=== PATIENT | female | born 1985 | race Hispanic/Latino ===

== ENCOUNTER 2021-10-04 13:38 | Emergency (ER) | payer SELFPAY ==
[~2021-10-04] VITALS: Ht 157.5 cm; Wt 73.9 kg
[2021-10-04] MEDS ORDERED: VYVANSE30 MG (14:08)
[2021-10-04] MEDS ORDERED: ONDANSETRON HCL INJ 2MG/ML 2ML 2 MG/ML VIAL IV STA (14:20)
[2021-10-04] MEDS ORDERED: FAMOTIDINE 20 MG/2 ML VIAL IV STA (14:21)
[2021-10-04] MEDS ORDERED: SODIUM CHLORIDE 0.9% 1000ML 1,000 ML IV SCH (14:30)
[2021-10-04] MEDS ORDERED: IOPAMIDOL 370 MG/ML 100 ML INFUS..BTL INJ ONE (15:05)
[2021-10-04] MEDS ORDERED: DICYCLOMINE HCL 10 MG CAP ONE (16:13)
[2021-10-04] MEDS ORDERED: DICYCLOMINE HCL 20 MG TAB PO ONE (16:15)
[2021-10-04] MEDS ORDERED: DICYCLOMINE HCL20 MG PO (16:23)
[2021-10-04] MEDS ORDERED: ONDANSETRON ODT4 MG PO (16:25)
[2021-10-04] MEDS ORDERED: AZITHROMYCIN250 MG PO (16:26)
== END 2021-10-04 15:30 | disposition home or self-care (01) ==
LOC: FSED 14:15
DX: J20.8 Acute bronchitis due to other specified organisms (principal); I88.0 Nonspecific mesenteric lymphadenitis; D64.9 Anemia, unspecified; F90.9 Attention-deficit hyperactivity disorder, unspecified type; K86.2 Cyst of pancreas; N92.0 Excessive and frequent menstruation with regular cycle; F17.200 Nicotine dependence, unspecified, uncomplicated; Z71.6 Tobacco abuse counseling; Z20.822 Contact with and (suspected) exposure to COVID-19; Z88.8 Allergy status to other drugs, medicaments and biological substances; Z79.899 Other long term (current) drug therapy
CPT/HCPCS: 71046; 74177; 80048; 80076; 81003; 81025; 82553; 83518; 84484; 85025; 87400; 93005; 99284; J2405; J7030; Q9967; U0002

== ENCOUNTER 2024-03-02 09:19 | Emergency (ER) | payer OTHER ==
[~2024-03-02] VITALS: Ht 157.5 cm; Wt 79.6 kg
[~2024-03-02 09:19] MED LIST: AZITHROMYCIN250 MG PO; DICYCLOMINE HCL20 MG PO; ONDANSETRON ODT4 MG PO; VYVANSE30 MG
[2024-03-02] MEDS ORDERED: LEVOTHYROXINE75 MCG PO (09:33)
[2024-03-02] MEDS ORDERED: MULTIVITAMINS1 EAC4 PO (09:40)
[2024-03-02] MEDS ORDERED: Morphine 2mg Syringe 2 MG/ML SYR IV ONE (09:45)
[2024-03-02] MEDS ORDERED: Morphine 4mg INJECTION 4 MG/ML INJ IV ONE (10:00)
[2024-03-02] MEDS: ONDANSETRON HCL INJ 2MG/ML 2ML 2 MG/ML VIAL IV STA (10:23)
[2024-03-02] MEDS: Morphine 4mg INJECTION 4 MG/ML INJ IV ONE (10:23)
[2024-03-02] MEDS: SODIUM CHLORIDE 0.9% 1000ML 1,000 ML IV SCH (10:23)
[2024-03-02] MEDS: DIPHENHYDRAMINE HCL INJ 50 MG/ML VIAL IV ONE (11:00)
[2024-03-02] MEDS: METOCLOPRAMIDE HCL 10 MG/2ML VIAL IV ONE (11:00)
[2024-03-02 12:25] VITALS: PULSE 64; RESP 14; TEMP 98.4; O2SAT 100
[2024-03-02] MEDS ORDERED: meclizine PO (12:48)
== END 2024-03-02 12:55 | disposition home or self-care (01) ==
LOC: FSED 09:25
DX: R42 Dizziness and giddiness (principal); N83.202 Unspecified ovarian cyst, left side; R10.2 Pelvic and perineal pain; E03.9 Hypothyroidism, unspecified; F90.9 Attention-deficit hyperactivity disorder, unspecified type
CPT/HCPCS: 70450; 76830; 76856; 80053; 81003; 81025; 82553; 84484; 85025; 93005; 96374; 96375; 99284; J1200; J2270; J2405; J2765; J7030

== ENCOUNTER 2024-06-17 22:20 | Emergency (ER) | payer OTHER ==
[~2024-06-17] VITALS: Ht 157.5 cm; Wt 80.7 kg
[~2024-06-17 22:20] MED LIST changes: +LEVOTHYROXINE75 MCG PO; +MULTIVITAMINS1 EAC4 PO; +meclizine PO
[2024-06-17 22:28] VITALS: PULSE 94; RESP 18; TEMP 98.2
[2024-06-17] MEDS ORDERED: DEXAMETHASONE SOD PHOS INJ 4 MG/ML SDV ONE (22:40)
[2024-06-17] MEDS: TRAMADOL HCL 50 MG TAB PO ONE (22:41)
[2024-06-17] MEDS: DEXAMETHASONE SOD PHOS INJ 4 MG/ML SDV IM ONE (22:41)
[2024-06-17] MEDS: ONDANSETRON HCL 4 MG ORAL DISINTEGRATING TAB PO ONE (22:41)
[2024-06-18 00:13] VITALS: BP 144/69; PULSE 94; RESP 18; TEMP 98.2; O2SAT 97
[2024-06-18] MEDS ORDERED: TIZANIDINE HCL4 MG PO (00:14)
[2024-06-18] MEDS ORDERED: ACETAMINOPHEN-1 EAC4 PO (00:14)
[2024-06-18] MEDS ORDERED: DIPHENHYDRAMINE25 M2 PO (00:14)
[2024-06-18] MEDS ORDERED: PREDNISONE20 MG PO (00:14)
== END 2024-06-18 00:20 | disposition home or self-care (01) ==
LOC: FSED 22:27
DX: R05.9 Cough, unspecified (principal); M62.830 Muscle spasm of back; E03.9 Hypothyroidism, unspecified; F90.9 Attention-deficit hyperactivity disorder, unspecified type
CPT/HCPCS: 71250; 74176; 81025; 96372; 99283; J1100; Q0162